=== PATIENT | male | born 1965 | race Two or more races ===

== ENCOUNTER 2018-12-31 15:22 | Emergency (ER) | payer OTHER ==
[~2018-12-31] VITALS: Ht 175.3 cm; Wt 67.6 kg
[~2018-12-31 15:22] MED LIST: CEPHULAC10 G/15 ML; CORGARD20 M1; EPIVIR300 MG; LANTUS SOLOSTAR3 ML; LASIX20 MG; LASIX20 MG PO; NOVOLOG100 U/M1; NOVOLOG100 U/ML; OMEPRAZOLE20 MG; SINTROID; SUSTIVA600 MG; SYNTHROID200 MCG; TESSALON PERLE100 MG PO; THEREMS1 TAB; TIVICAY50 MG; TRIDERM30 GM TP; VASOTEC2.5 MG; XIFAXAN550 MG
== END 2018-12-31 21:01 | disposition home or self-care (01) ==
LOC: ER 15:22
DX: L03.115 Cellulitis of right lower limb (principal); E11.9 Type 2 diabetes mellitus without complications

== ENCOUNTER → 2020-04-04 | Emergency (ER) | payer OTHER ==
[~2020-04-04] VITALS: Ht 170.2 cm; Wt 62.1 kg
[~2020-04-04] MED LIST changes: +KRISTALOSE10 GM
== END | disposition home or self-care (01) ==
LOC: ER 19:31
DX: E11.65 Type 2 diabetes mellitus with hyperglycemia (principal)

== ENCOUNTER 2020-05-03 15:26 | Inpatient (IN) | payer OTHER ==
[~2020-05-03] VITALS: Ht 170.2 cm; Wt 55.8 kg
== END 2020-05-08 16:38 | disposition home or self-care (01) | DRG 638 ==
LOC: ER 15:26 → MEDI 05-04 01:43 → MEDJ 05-04 01:43
PROVIDERS: ADMIT Internal Medicine; ATTEND Internal Medicine
PROC: 30233N1 Transfusion of Nonautologous Red Blood Cells into Peripheral Vein, Percutaneous Approach (ICD-10-PCS; principal; 2020-05-04)
DX: E11.65 Type 2 diabetes mellitus with hyperglycemia (principal); L02.31 Cutaneous abscess of buttock; R18.8 Other ascites; B37.89 Other sites of candidiasis; B20 Human immunodeficiency virus [HIV] disease; E03.9 Hypothyroidism, unspecified; D64.9 Anemia, unspecified; K76.89 Other specified diseases of liver; R16.1 Splenomegaly, not elsewhere classified; N28.9 Disorder of kidney and ureter, unspecified; Z79.4 Long term (current) use of insulin

== ENCOUNTER 2020-05-14 20:49 | Emergency (ER) | payer OTHER ==
[~2020-05-14] VITALS: Ht 175.3 cm; Wt 62.6 kg
== END 2020-05-15 00:52 | disposition home or self-care (01) ==
LOC: ER 20:49
DX: K60.2 Anal fissure, unspecified (principal); D69.6 Thrombocytopenia, unspecified; B20 Human immunodeficiency virus [HIV] disease

== ENCOUNTER 2020-05-27 18:43 | Inpatient (IN) | payer OTHER ==
[~2020-05-27] VITALS: Ht 180.3 cm; Wt 59.0 kg
--- NOTE | 2020-05-27 18:56 | NUR ---
PATIENT IS RECIEVED ALERT AND ORIENTED X3 SAYING THAT HE HAS SPOTS ON HIS LEFT FOOT. PATIENT'S RIGHT FOOT HAS HEMATOMAS UNDER THE FOOT AROUND THE TOES AND ON TOP OF THE FOOT AROUND THE TOES, ALSO ON THE SIDES. PATIENT DENIES TRAUMA. BOTH OF PATIENTS ANKLES ARE SWOLLEN AND SEEM LIKE THEY'RE RETAINING LIQUID.
--- NOTE | 2020-05-27 19:57 | NUR ---
PACIENTE ORIENTADO SOBRE EL TX. SE EXTRAEN MUESTRAS DE EDY BAJO MEDIDAS ASEPTICAS SE ROTULAN Y ENVIAN AL LABORATORIO. SE CANALIZA Y COLOCA H/L
== END 2020-06-04 11:45 | disposition home or self-care (01) | DRG 369 ==
LOC: ER 18:43 → SURG 21:24 → SEC-K 21:24 → SURG 05-28 08:59 → MEDI 06-03 17:38 → SURG 06-03 19:52
PROVIDERS: ADMIT Internal Medicine; ATTEND Internal Medicine
PROC: 30233N1 Transfusion of Nonautologous Red Blood Cells into Peripheral Vein, Percutaneous Approach (ICD-10-PCS; 2020-05-30)
PROC: 0DB68ZX Excision of Stomach, Via Natural or Artificial Opening Endoscopic, Diagnostic (ICD-10-PCS; principal; 2020-06-02)
PROC: 0DJD8ZZ Inspection of Lower Intestinal Tract, Via Natural or Artificial Opening Endoscopic (ICD-10-PCS; 2020-06-03)
DX: I85.00 Esophageal varices without bleeding (principal); K62.5 Hemorrhage of anus and rectum; B20 Human immunodeficiency virus [HIV] disease; L02.31 Cutaneous abscess of buttock; N17.9 Acute kidney failure, unspecified; D62 Acute posthemorrhagic anemia; K76.89 Other specified diseases of liver; K64.8 Other hemorrhoids; E03.8 Other specified hypothyroidism; E10.65 Type 1 diabetes mellitus with hyperglycemia; E10.22 Type 1 diabetes mellitus with diabetic chronic kidney disease; I87.2 Venous insufficiency (chronic) (peripheral); I12.9 Hypertensive chronic kidney disease with stage 1 through stage 4 chronic kidney disease, or unspecified chronic kidney disease; N18.3 Chronic kidney disease, stage 3 (moderate); Z79.4 Long term (current) use of insulin; Z03.818 Encounter for observation for suspected exposure to other biological agents ruled out

== ENCOUNTER 2020-07-28 12:01 | Outpatient (CLI) | payer OTHER | END 2020-07-28 12:17 | disposition home or self-care (01) | LOC: LAB 12:01 | PROVIDERS: ATTEND Internal Medicine Cardiovascular Disease | DX: E11.9 Type 2 diabetes mellitus without complications (principal); E03.8 Other specified hypothyroidism; E78.2 Mixed hyperlipidemia; D68.8 Other specified coagulation defects; I10 Essential (primary) hypertension ==

== ENCOUNTER 2021-07-15 18:00 | Inpatient (IN) | payer OTHER ==
[~2021-07-15] VITALS: Ht 175.3 cm
[2021-07-23] MEDS ORDERED: AMICAR500 MG PO (17:41)
[2021-07-23] MEDS ORDERED: ANUSOL-HC30 G2 TOP (17:41)
[2021-07-23] MEDS ORDERED: LACTULOSE10 GM/15 M PO (17:41)
== END 2021-07-23 21:37 | disposition home or self-care (01) | DRG 699 ==
LOC: ER 18:00 → ICU-2 07-16 10:57 → SURH 07-16 10:57
PROVIDERS: ADMIT Internal Medicine; ATTEND Internal Medicine
PROC: 30233N1 Transfusion of Nonautologous Red Blood Cells into Peripheral Vein, Percutaneous Approach (ICD-10-PCS; principal; 2021-07-16)
DX: E11.22 Type 2 diabetes mellitus with diabetic chronic kidney disease (principal); B20 Human immunodeficiency virus [HIV] disease; E87.1 Hypo-osmolality and hyponatremia; K76.6 Portal hypertension; N18.9 Chronic kidney disease, unspecified; D63.1 Anemia in chronic kidney disease; N17.8 Other acute kidney failure; K76.89 Other specified diseases of liver; Z79.4 Long term (current) use of insulin; Z20.822 Contact with and (suspected) exposure to COVID-19; E86.0 Dehydration; E03.8 Other specified hypothyroidism; I12.9 Hypertensive chronic kidney disease with stage 1 through stage 4 chronic kidney disease, or unspecified chronic kidney disease

== ENCOUNTER 2021-09-07 13:05 | Inpatient (IN) | payer OTHER ==
[~2021-09-07] VITALS: Ht 175.3 cm
[~2021-09-07 13:05] MED LIST changes: +AMICAR500 MG PO; +ANUSOL-HC30 G2 TOP; +LACTULOSE10 GM/15 M PO
[2021-09-07] MEDS ORDERED: ALDACTONE25 MG PO (14:00)
[2021-09-07] MEDS ORDERED: PROCRIT20000 UNIT (14:01)
[2021-09-07] MEDS ORDERED: AMICAR500 MG PO (14:01)
[2021-09-07] MEDS ORDERED: IRON236 MG (14:02)
[2021-09-07] MEDS ORDERED: INDERAL XL80 MG (14:03)
[2021-09-07] MEDS ORDERED: LASIX40 MG PO (14:03)
[2021-09-07] MEDS ORDERED: [UNRECOGNIZED DRUG - OTHER] (14:04)
[2021-09-07] MEDS ORDERED: ENALAPRIL MALEAT5 MG PO (14:04)
== END 2021-09-09 13:57 | disposition home or self-care (01) | DRG 442 ==
LOC: ER 13:05 → SEC-K 23:53 → MEDJ 09-08 01:21
PROVIDERS: ADMIT Internal Medicine; ATTEND Internal Medicine
PROC: 8E0ZXY6 Isolation (ICD-10-PCS; 2021-09-07)
PROC: 0W9G3ZZ Drainage of Peritoneal Cavity, Percutaneous Approach (ICD-10-PCS; principal; 2021-09-08)
DX: K76.6 Portal hypertension (principal); B20 Human immunodeficiency virus [HIV] disease; E87.1 Hypo-osmolality and hyponatremia; J90 Pleural effusion, not elsewhere classified; I12.9 Hypertensive chronic kidney disease with stage 1 through stage 4 chronic kidney disease, or unspecified chronic kidney disease; E10.22 Type 1 diabetes mellitus with diabetic chronic kidney disease; N18.9 Chronic kidney disease, unspecified; Z79.4 Long term (current) use of insulin; D50.0 Iron deficiency anemia secondary to blood loss (chronic); E86.0 Dehydration; Z20.822 Contact with and (suspected) exposure to COVID-19; E03.8 Other specified hypothyroidism; E10.65 Type 1 diabetes mellitus with hyperglycemia

== ENCOUNTER 2021-11-11 17:39 | Inpatient (IN) | payer OTHER ==
[~2021-11-11] VITALS: Ht 177.8 cm; Wt 81.6 kg
[~2021-11-11 17:39] MED LIST changes: +ALDACTONE25 MG PO; +ENALAPRIL MALEAT5 MG PO; +INDERAL XL80 MG; +IRON236 MG; +LASIX40 MG PO; +PROCRIT20000 UNIT; +[UNRECOGNIZED DRUG - OTHER]
[2021-11-11] MEDS ORDERED: ALDACTONE25 MG (18:22)
[2021-11-14] MEDS ORDERED: XIFAXAN550 MG PO (13:13)
[2021-11-14] MEDS ORDERED: SPIRONOLACTONE25 MG PO (13:13)
== END 2021-11-14 23:55 | disposition expired | DRG 977 ==
LOC: ER 17:39 → MEDJ 11-12 11:19
PROVIDERS: ADMIT Internal Medicine; ATTEND Internal Medicine
PROC: 0W9G30Z Drainage of Peritoneal Cavity with Drainage Device, Percutaneous Approach (ICD-10-PCS; principal; 2021-11-12)
PROC: 30233N1 Transfusion of Nonautologous Red Blood Cells into Peripheral Vein, Percutaneous Approach (ICD-10-PCS; 2021-11-12)
PROC: 02HV33Z Insertion of Infusion Device into Superior Vena Cava, Percutaneous Approach (ICD-10-PCS; 2021-11-12)
DX: D64.9 Anemia, unspecified (principal); B20 Human immunodeficiency virus [HIV] disease; R18.8 Other ascites; E87.1 Hypo-osmolality and hyponatremia; N18.9 Chronic kidney disease, unspecified; E86.0 Dehydration; D63.1 Anemia in chronic kidney disease; I12.9 Hypertensive chronic kidney disease with stage 1 through stage 4 chronic kidney disease, or unspecified chronic kidney disease; E11.22 Type 2 diabetes mellitus with diabetic chronic kidney disease; E11.65 Type 2 diabetes mellitus with hyperglycemia; Z79.4 Long term (current) use of insulin; E03.8 Other specified hypothyroidism; K76.89 Other specified diseases of liver; Z20.822 Contact with and (suspected) exposure to COVID-19; K64.8 Other hemorrhoids; K60.2 Anal fissure, unspecified

== ENCOUNTER 2022-01-17 14:36 | Outpatient (CLI) | payer OTHER ==
[~2022-01-17 14:36] MED LIST changes: +ALDACTONE25 MG; +SPIRONOLACTONE25 MG PO; +XIFAXAN550 MG PO
== END 2022-01-17 14:46 | disposition home or self-care (01) ==
LOC: TOM 14:36
PROVIDERS: ATTEND Internal Medicine Cardiovascular Disease
DX: R41.2 Retrograde amnesia (principal)

== ENCOUNTER 2022-04-27 21:48 | Inpatient (IN) | payer OTHER ==
[~2022-04-27] VITALS: Ht 154.9 cm; Wt 76.7 kg
[~2022-04-27 21:48] MED LIST changes: +SYNTHROID50 MCG PO
--- NOTE | 2022-04-27 22:20 | NUR ---
SE RECIBE PACIENTE ALERTA, ORIENTADO X E ESFERAS ACOMPANADO DE MADRE, REFIERE TENER DOLOR ABDOMINAL. PRESENTA PROTUBERANCIA EN AREA DE ABDOMEN PTE REFIERE TENER RETENCION DE LIQUIDOS POR CONDICION SE ESTIMAN S/V SE UBICA EN AREA DE OBSERVACION.PTE HIV POSITIVO.
[2022-04-27] MEDS ORDERED: TIVICAY50 MG PO (22:27)
[2022-04-27] MEDS ORDERED: AMICAR500 MG PO (22:28)
[2022-04-27] MEDS ORDERED: [UNRECOGNIZED DRUG - OTHER] PO (22:28)
[2022-04-27] MEDS ORDERED: XIFAXAN550 MG PO (22:28)
[2022-04-27] MEDS ORDERED: NOVOLOG100 UNIT/1 SQ (22:29)
[2022-04-27] MEDS ORDERED: LANTUS SOL100 UNIT/1 (22:29)
[2022-04-27] MEDS ORDERED: SYNTHROID50 MCG PO (22:29)
[2022-04-27] MEDS ORDERED: SYNTHROID200 MCG PO (22:29)
[2022-04-27] MEDS ORDERED: PROCRIT20000 UNIT SUBCUTANEO (22:30)
[2022-04-27] MEDS ORDERED: IRON236 MG PO (22:30)
[2022-04-27] MEDS ORDERED: VASOTEC5 MG PO (22:30)
[2022-04-27] MEDS ORDERED: ALDACTONE25 MG PO (22:31)
[2022-04-27] MEDS ORDERED: INDERAL LA80 MG PO (22:31)
[2022-04-27] MEDS ORDERED: LACTULOSE10 GM/15 M PO (22:32)
[2022-04-27] MEDS ORDERED: LASIX40 MG PO (22:32)
== END 2022-05-04 22:34 | disposition home or self-care (01) | DRG 977 ==
LOC: ER 21:48 → SEC-K 22:51 → SURH 22:51
PROVIDERS: ADMIT Internal Medicine; ATTEND Internal Medicine
PROC: 30233N1 Transfusion of Nonautologous Red Blood Cells into Peripheral Vein, Percutaneous Approach (ICD-10-PCS; principal; 2022-04-28)
PROC: 0W9G3ZZ Drainage of Peritoneal Cavity, Percutaneous Approach (ICD-10-PCS; 2022-05-03)
DX: D64.9 Anemia, unspecified (principal); B20 Human immunodeficiency virus [HIV] disease; D68.8 Other specified coagulation defects; K76.6 Portal hypertension; N18.4 Chronic kidney disease, stage 4 (severe); K76.89 Other specified diseases of liver; R06.09 Other forms of dyspnea; D63.1 Anemia in chronic kidney disease; K21.9 Gastro-esophageal reflux disease without esophagitis; E11.65 Type 2 diabetes mellitus with hyperglycemia; E11.22 Type 2 diabetes mellitus with diabetic chronic kidney disease; Z79.4 Long term (current) use of insulin; I12.9 Hypertensive chronic kidney disease with stage 1 through stage 4 chronic kidney disease, or unspecified chronic kidney disease; Z20.822 Contact with and (suspected) exposure to COVID-19

== ENCOUNTER 2022-06-16 17:57 | Inpatient (IN) | payer OTHER ==
[~2022-06-16] VITALS: Ht 162.6 cm; Wt 63.5 kg
[~2022-06-16 17:57] MED LIST changes: +INDERAL LA80 MG PO; +IRON236 MG PO; +LANTUS SOL100 UNIT/1; +NOVOLOG100 UNIT/1 SQ; +PROCRIT20000 UNIT SUBCUTANEO; +SYNTHROID200 MCG PO; +TIVICAY50 MG PO; +VASOTEC5 MG PO; +[UNRECOGNIZED DRUG - OTHER] PO
[2022-06-16] MEDS ORDERED: ENALAPRIL MALEAT5 MG PO (19:04)
[2022-06-16] MEDS ORDERED: LAMIVUDINE150 MG PO (19:05)
[2022-06-16] MEDS ORDERED: PROPRANOLOL HCL10 MG PO (19:05)
[2022-06-16] MEDS ORDERED: LASIX40 MG PO (19:06)
[2022-06-16] MEDS ORDERED: SPIRONOLACTONE (19:06)
[2022-06-20] MEDS ORDERED: XIFAXAN550 MG (16:29)
[2022-06-20] MEDS ORDERED: SPIRONOLACTONE25 MG (16:29)
[2022-06-24] MEDS ORDERED: FAMOTIDINE20 MG PO (15:39)
[2022-06-24] MEDS ORDERED: LACTULOSE10 GM/151 PO (15:39)
[2022-06-24] MEDS ORDERED: FUROSEMIDE10 MG/1 M1 PO (15:39)
[2022-06-24] MEDS ORDERED: SPIRONOLACTONE50 MG PO (15:39)
[2022-06-24] MEDS ORDERED: LEVOTHYROXINE200 MCG PO (15:39)
[2022-06-24] MEDS ORDERED: ENALAPRIL MALEAT5 MG PO (15:39)
[2022-06-24] MEDS ORDERED: PROTEINEX-18 LI30 ML PO (15:39)
[2022-06-24] MEDS ORDERED: Lantus 1000 UNITS/10 SUBCUTANEO (15:39)
[2022-06-24] MEDS ORDERED: HUMALOG100 UNIT/1 SUBCUTANEO (15:39)
[2022-06-24] MEDS ORDERED: LEVOTHYROXINE50 MCG PO (15:39)
[2022-06-24] MEDS ORDERED: TAMS0.4C PO (15:39)
[2022-06-24] MEDS ORDERED: PROPRANOLOL HCL10 MG PO (15:39)
[2022-06-24] MEDS ORDERED: CLONAZEPAM0.5 MG PO (15:41)
== END 2022-06-25 15:31 | disposition home or self-care (01) | DRG 977 ==
LOC: ER 17:57 → MEDI 06-17 11:34
PROVIDERS: ADMIT Internal Medicine; ATTEND Internal Medicine
PROC: 30233N1 Transfusion of Nonautologous Red Blood Cells into Peripheral Vein, Percutaneous Approach (ICD-10-PCS; principal; 2022-06-17)
PROC: BW40ZZZ Ultrasonography of Abdomen (ICD-10-PCS; 2022-06-18)
PROC: 0W9G3ZZ Drainage of Peritoneal Cavity, Percutaneous Approach (ICD-10-PCS; 2022-06-20)
DX: D64.9 Anemia, unspecified (principal); B20 Human immunodeficiency virus [HIV] disease; R18.8 Other ascites; N18.4 Chronic kidney disease, stage 4 (severe); K76.6 Portal hypertension; K76.9 Liver disease, unspecified; I12.9 Hypertensive chronic kidney disease with stage 1 through stage 4 chronic kidney disease, or unspecified chronic kidney disease; D69.6 Thrombocytopenia, unspecified; Z79.4 Long term (current) use of insulin; E11.22 Type 2 diabetes mellitus with diabetic chronic kidney disease; K72.90 Hepatic failure, unspecified without coma; F43.20 Adjustment disorder, unspecified; Z20.822 Contact with and (suspected) exposure to COVID-19